=== PATIENT | female | born 1985 | race Hispanic/Latino ===

== ENCOUNTER 2021-09-09 12:33 | Outpatient (CLI) | payer BC, SELFPAY ==
--- NOTE | ~2021-09-09 | MMUS_ITS ---
EXAMINATION: MM diagnostic david BI w noel, US breast BI complete HISTORY: Bilateral nipple discharge. Lump left breast. TECHNIQUE: Additional 3-D tomosynthesis images of the breasts were performed and synthetic 2-D images were generated. CAD analysis was submitted and interpreted. High resolution bilateral complete breas t ultrasound was performed. COMPARISON: No prior studies for comparison. BREAST PARENCHYMAL COMPOSITION: The breasts are heterogenously dense, which may obscure small masses FINDINGS: MAMMOGRAPHIC FINDINGS: . There are no suspicious masses, calcifications or architectural distortion in either breast to sugg est malignancy. ULTRASOUND: Complete bilateral US of all 4 quadrants of the breasts and retroareolar region was reviewed. Right breast: At 7:00, 4 cm from the nipple there is an oval hypoechoic mass without posterior featur es or internal vascularity measuring 11 x 7 x 5 mm. There is parallel orientation with no significant posterior features. No other masses in the right breast are identified. Left breast: Normal heterogeneous echotexture without focal solid or cystic mass. IMPRESSION: 1. Probable benign right breast mass at 7:00, 4 cm from the nipple measuring 11 mm. 2. Recommend 6 month follow-up limited right breast ultrasound BI-RADS category 4, suspicious findings. Reviewed, dictated and finalized at location A. IMPRESSION: 1. Probable benign right breast mass at 7:00, 4 cm from the nipple measuring 11 mm. 2. Recommend 6 month follow-up limited right breast ultrasound BI-RADS category 4, suspicious findings.
== END 2021-09-09 12:34 | disposition home or self-care (01) ==
PROVIDERS: PCP Physician Assistant; Visit Provider Nurse Practitioner
DX: R92.8 Other abnormal and inconclusive findings on diagnostic imaging of breast (principal); N63.13 Unspecified lump in the right breast, lower outer quadrant
CPT/HCPCS: 76641; 77062; 77066; G0279

== ENCOUNTER 2022-11-11 06:27 | Outpatient (CLI) | payer BC, MEDICAID, SELFPAY ==
[2022-11-11] VITALS (22 sets, daily range): BP systolic 94–109; BP diastolic 47–59; PULSE 79–103; TEMP 36.6; O2SAT 97–100
--- NOTE | 2022-11-11 06:53 | PM.IMHP ---
H&P: HPI History of Present Illness Date/Time: 11/11/22 06:53 Chief Complaint: Asya is a 37yo at 36.1 who presents for external cephalic version. Baby francisco breech, normal fluid, posterior placenta. She has had 3 term svds. This complicated by A1GDM and AMA. Review of Systems Review of Systems: All systems reviewed & are unremarkable except as noted in HPI and below PMFSH Family History Family History (System 03/01/19 @ 10:12 by Lisa Santizo) Mother High cholesterol Father Diabetes mellitus Social History Social History (System 03/01/19 @ 10:12 by Lisa Santizo) Smoking status: Never smoker Substance use: never Spiritual care concerns: No Meds Home Medications and Allergies Home Medications Medication Instructions Recorded Confirmed Type vit no.133-ferrous 1 tablet PO DAILY 02/06/19 02/06/19 History fumarate 28 mg-folic acid 800 mcg tablet () Allergies Allergy/AdvReac Type Severity Reaction Status Date / Time No Known Allergies Allergy Verified 03/01/19 10:12 Exam Const: General: no acute distress Resp: Effort & Inspection: normal respiratory effort Auscultation: clear to auscultation bilaterally Cardio: Rate: regular rate Rhythm: regular rhythm GI: GI Palp: Yes Soft to palpation Extrem: General: normal to inspection Assessment and Plan Assessment and plan (1) Breech presentation: Code(s): O32.1XX0 - Maternal care for breech presentation, not applicable or unspecified Status: Acute Plan consented for ECV, normal fluid, francisco breech, posterior placenta. terbutaline FHT category 1 will proceed. pt aware of risks and alternate of CS
[2022-11-11] MEDS: TERBUTALINE SULFATE 1 MG/ML VIAL 0.25 MG SUB-Q (07:03)
--- NOTE | 2022-11-11 07:27 | W.PM.PROC2 ---
Procedure Note - Detailed Date of Procedure 11/11/22 Pre-op Diagnosis Francisco Breech fetus Post-op Diagnosis Same Procedure Performed External Cephalic Version, failed Surgeon Phyllis Julien MD Assistant [employer] none Anesthesia None Indications francisco breech fetus Findings posterior placenta, normal fluid, fetus in francisco breech position with breech very low in pelvis Description of Procedure heart tones were category 1 prior to procedure. She received terbutaline preprocedure. Ultrasound was done verifying posterior placenta, adequate fluid, and francisco breech presentation with head in the RUQ. Using ultrasound gel as lubricant, several attempts were made at both a forward roll and backward roll, but the breech was so low in the pelvis it was unable to be elevated out of the pelvis. Heart tones were intermittently visualized with the ultrasound and were normal. The procedure was terminated. Asya tolerated the procedure well. The baby was placed back on the monitor for an additional hour. Estimated Blood Loss 0 Drains No Packing No Pathology None sent Complications No immediate complications Condition Stable Disposition Other (home after monitoring complete.)
[2022-11-11 07:58] LABS: Glucose Point of Care 79 mg/dl (65-105)
--- NOTE | 2022-11-11 09:07 | PC.NURSE ---
0700--Dr. Julien at bedside to perform external version. Risks and benefits explained. No questions at this time.
--- NOTE | 2022-11-11 09:13 | PC.NURSE ---
0755--Pt c/o feeling dizzy. Blood sugar checked-79. Peanut butter and crackers given.
--- NOTE | 2022-11-11 09:15 | PC.NURSE ---
0815--Pt states she is feeling better after snack. VSS stable.
--- NOTE | 2022-11-11 09:27 | PC.NURSE ---
0715--External version unsuccessful.
== END 2022-11-11 08:40 | disposition home or self-care (01) ==
LOC: ANHOBOP 06:38 → ANHLDR 06:41
PROVIDERS: PCP Physician Assistant; Visit Provider Obstetrics & Gynecology
DX: O32.1XX0 Maternal care for breech presentation, not applicable or unspecified (principal); Z3A.00 Weeks of gestation of pregnancy not specified
CPT/HCPCS: 59025; 82948; 99199; J3105

== ENCOUNTER 2022-12-05 05:28 | Inpatient (IN) | payer BC, MEDICAID, SELFPAY ==
[2022-12-05] VITALS (65 sets, daily range): BP systolic 84–108; BP diastolic 43–82; PULSE 54–77; RESP 15–18; TEMP 36.1–37.2; O2SAT 94–100; BMI 26.6
[2022-12-05] MEDS: LACTATED RINGERS 1,000 ML 125 ML IV CONT ×2 (06:15→07:13)
--- NOTE | 2022-12-05 06:16 | LDADM ---
This patient, Asya Mcclelland, was admitted to Labor/Delivery/Recovery 120 on 12/05/22 at 05:28. Plans for labor, pain management and were discussed with patient. Patient/family oriented to hospital policies and general routines including ID bracelet, bed and alarms, visiting hours, pain management, procedures, bathroom and other care routines, personal items, smoking policy, room service/diet and guest tray routines, infant security routines, and visiting hours. Patient/Family are encouraged to report perceived risks to care and to ask questions if they do not understand what they are told or what they should do. See OBIX for further documentation.
[2022-12-05 06:20] LABS: Basophils Percent Auto 0.4 % (0.2-1.2); Eosinophils Absolute Auto 0.2 K/mm3 (0-0.3); Eosinophils Percent Auto 2.6 % (0-4.4); Hematocrit 37.9 % (37.0-47.0); Hemoglobin 12.4 g/dL (12.0-15.0); Immature Granulocyte Absolute 0.05 K/mm3 (0.00-0.031); Immature Granulocyte Percent A 0.7 % (0-0.5); Lymphocytes Absolute Auto 1.68 K/mm3 (0.9-3.2); Lymphocytes Percent Auto 23.8 % (18.3-44.2); Mean Corpuscular HGB Conc 32.7 g/dl (32-36); Mean Corpuscular Hemoglobin 32.1 pg (26-34); Mean Corpuscular Volume 98.2 fl (80-100); Mean Platelet Volume 11.2 fl (7.4-10.4); Monocytes Absolute Auto 0.5 K/mm3 (0.1-0.6); Monocytes Percent Auto 7.4 % (2.6-8.5); Neutrophils Absolute Auto 4.6 K/mm3 (1.3-6.7); Neutrophils Percent Auto 65.1 % (45.5-73.1); Platelet Count Result 156 k/mm3 (150-375); Red Blood Count 3.86 M/mm3 (4.2-5.4); Red Cell Distribution Width 14.6 % (11.5-14.5); White Blood Count 7.1 K/mm3 (4.5-10.0)
[2022-12-05 06:23] LABS: Glucose Point of Care 72 mg/dl (65-105)
--- NOTE | 2022-12-05 07:11 | PM.IMHP ---
H&P: HPI History of Present Illness Date/Time: 12/05/22 07:11 Chief Complaint: CS breech Narrative: Asay is a 37yo at 39.4 for CS for breech. 3 prior at term. complicated by GDMA1 and AMA. Failed ECV. Review of Systems Review of Systems: All systems reviewed & are unremarkable except as noted in HPI and below PMFSH Family History Family History (System 03/01/19 @ 10:12 by Lisa Santizo) Mother High cholesterol Father Diabetes mellitus Social History Social History (System 03/01/19 @ 10:12 by Lisa Santizo) Smoking status: Never smoker Second hand tobacco smoke exposure: No Substance use: never Lack of Transportation: No Lack of Food: Never True Current Housing: I Have Housing Concerned About Future Housing: No Difficulty Paying Gas/Electric Bills: No Difficulty Paying for Meds: No Currently Unemployed: No Education: High School Diploma/GED Difficulty w/ Childcare or Family Care: No Spiritual care concerns: No Meds Home Medications and Allergies Home Medications Medication Instructions Recorded Confirmed Type vit no.133-ferrous 1 tablet PO DAILY 02/06/19 02/06/19 History fumarate 28 mg-folic acid 800 mcg tablet () Allergies Allergy/AdvReac Type Severity Reaction Status Date / Time No Known Allergies Allergy Verified 03/01/19 10:12 Vital Signs Vital Signs - 24 hr 12/05/22 05:51 12/05/22 06:16 12/05/22 06:31 Pulse Rate 74 73 71 Blood Pressure 108/50 L 104/82 104/68 12/05/22 06:46 12/05/22 07:01 Pulse Rate 72 66 Blood Pressure 84/70 L 106/63 Exam Const: General: no acute distress Resp: Effort & Inspection: normal respiratory effort Auscultation: clear to auscultation bilaterally Cardio: Rate: regular rate Rhythm: regular rhythm GI: GI Palp: Yes Soft to palpation Extrem: General: normal to inspection H&P: Results Labs Labs: Short CBC 12/05/22 Range/Units 06:09 WBC 7.1 (4.5-10.0) K/mm3 Hgb 12.4 (12.0-15.0) g/dL Hct 37.9 (37.0-47.0) % Plt Count 156 (150-375) k/mm3 Assessment and Plan Assessment and plan (1) Breech presentation: Code(s): O32.1XX0 - Maternal care for breech presentation, not applicable or unspecified Status: Acute (2) GDM (gestational diabetes mellitus), class A1: Code(s): O24.410 - Gestational diabetes mellitus in , diet controlled Status: Acute Plan FHT category 1 CS for breech, consented, discussed RBA, will proceed ancef
--- NOTE | 2022-12-05 07:14 | WPDHPUPDATE1 ---
History and Physical Update Update Date/Time: 12/05/22 07:14 History and Physical has been reviewed, including an updated exam of the patient. There are NO changes in the patient's condition. Risks, benefits, and alternatives have been discussed and questions answered. Patient agrees to proceed with procedure.
--- NOTE | 2022-12-05 07:18 | PC.NURSE ---
0659--Dr. nicholson at , u/s confirms still in breech position.
[2022-12-05] MEDS: ceFAZolin 2 GM/D5W 50 ML 2 GM/50 ML BAG IVPB (07:24)
--- NOTE | 2022-12-05 07:40 | WPDANESEPP ---
Anes - Eval Pre Procedure Procedure: Operation Date: 12/05/22 07:30 Proposed Procedures p Section - Phyllis Julien MD Date/Time: 12/05/22 07:40 Pre Op Diagnosis: C/S Patient Data Age: 37 Gender: F Height: 1.63 m Weight: 70.45 kg Last Vital Signs Pulse 66 12/05/22 07:01 BP 106/63 12/05/22 07:01 Allergies Allergy/AdvReac Type Severity Reaction Status Date / Time No Known Allergies Allergy Verified 03/01/19 10:12 Home Medications Medication Instructions Recorded Confirmed Type vit no.133-ferrous 1 tablet PO DAILY 02/06/19 02/06/19 History fumarate 28 mg-folic acid 800 mcg tablet () Laboratory Tests 12/05/22 12/05/22 06:09 06:19 WBC 7.1 K/mm3 (4.5-10.0) RBC 3.86 L M/mm3 (4.2-5.4) Hgb 12.4 g/dL (12.0-15.0) Hct 37.9 % (37.0-47.0) MCV 98.2 fl (80-100) MCH 32.1 pg (26-34) MCHC 32.7 g/dl (32-36) RDW 14.6 H % (11.5-14.5) Plt Count 156 k/mm3 (150-375) MPV 11.2 H fl (7.4-10.4) Immature Gran % (Auto) 0.7 H % (0-0.5) Neut % (Auto) 65.1 % (45.5-73.1) Lymph % (Auto) 23.8 % (18.3-44.2) [place] % (Auto) 7.4 % (2.6-8.5) Eos % (Auto) 2.6 % (0-4.4) Baso % (Auto) 0.4 % (0.2-1.2) Lymph # (Auto) 1.68 K/mm3 (0.9-3.2) [place] # (Auto) 0.5 K/mm3 (0.1-0.6) Eos # (Auto) 0.2 K/mm3 (0-0.3) Baso # (Auto) 0.0 K/mm3 (0.0-0.1) Abs Immat Gran (auto) 0.05 H K/mm3 (0.00-0.031) Absolute Neuts (auto) 4.6 K/mm3 (1.3-6.7) Absolute Nucleated RBC 0.0 K/mm3 (0.0-0.012) Nucleated RBC % 0.0 % (0.0-0.2) POC Capillary Glucose 72 mg/dl (65-105) RPR Pending Blood Type B Positive Antibody Screen Negative Patient hx anesthesia problems: none Family hx anesthesia problems: none Results Review: All pre-operative results and documents have been reviewed as part of the pre-operative evaluation. [facility] Family History Family History (System 03/01/19 @ 10:12 by Lisa Santizo) Mother High cholesterol Father Diabetes mellitus Social History Social History (System 03/01/19 @ 10:12 by Lisa Santizo) Smoking status: Never smoker Second hand tobacco smoke exposure: No Substance use: never Lack of Transportation: No Lack of Food: Never True Current Housing: I Have Housing Concerned About Future Housing: No Difficulty Paying Gas/Electric Bills: No Difficulty Paying for Meds: No Currently Unemployed: No Education: High School Diploma/GED Difficulty w/ Childcare or Family Care: No Spiritual care concerns: No Exam Day of Procedure 12/05/22 07:40 Patient weight: overweight Heart: regular rate and rhythm Lungs: clear to auscultation Airway: Mallampati scale class 1 Neurological: alert and oriented
[2022-12-05] MEDS: KETOROLAC 15 MG/ML VIAL (*BKC) IV PUSH (07:54)
--- NOTE | 2022-12-05 08:25 | PM.OBPRVD ---
OB - Delivery Note Procedure Delivery date: 12/05/22 Procedure: Procedures Operation Date: 12/05/22 07:30 <No data on this case meets the specified criteria> primary section Events: Breech Presentation and Gestational Diabetes Route of delivery: Specimen: Yes (placenta) Quantitative Blood Loss (ml): 485 Anesthesia type: Spinal Disposition: Floor Complications: none Narrative: Preop Dx: IUP 39.4, breech Postop Dx: same The patient was taken to the OR and received spinal anesthesia. She was placed in dorsal supine position with left lateral tilt. SCDs and turner were placed. She was prepped and draped in the normal sterile fashion. A Pfannensteil skin incision was made and carried through to the underlying layer of fascia. The fascia was incised in the midline and then extended laterally using Sauceda scissors. The muscles were in the midline and the peritoneum was entered bluntly. The peritoneal incision was extended inferiorly and superiorly with care to avoid the bladder. The bladder blade was then inserted, the vesicouterine peritoneum was grasped, incised with Metzenbaum scissors, and a bladder flap created. The bladder blade was reinserted. A low transverse uterine incision was made with a scalpel and extended bluntly. AROM was performed and fluid was noted to be meconium stained. The baby was delivered easily from breech presentation. The baby's oropharynx was suctioned. After 30 seconds, the cord was clamped and cut and the was handed off. Cord blood was obtained and the placenta was then removed manually. The uterus was exteriorized. A moist lap sponge was used to curette the endometrium. The uterine incision was then closed with two layers of 0-Vicryl in a running, locking fashion. Good hemostasis was noted. The posterior cul de sac was irrigated with normal saline and cleared of all clot and debris. The uterus was returned to the abdomen. Both lateral gutters were then irrigated. The rectus muscles were inspected and found to be hemostatic. The fascia was reapproximated using 0-Vicryl in running fashion. The subcutaneous tissue was irrigated with normal saline and made hemostatic with Bovie electrocautery. The subcutaneous tissue was reapproximated with a layer of running 2-0 plain gut. The skin was then closed with 4-0 Vicryl in a subcuticular fashion. Steri strips and a bandage were applied. The uterus was evacuated. The patient tolerated the procedure very well. All counts were correct. She was taken to the recovery room in good condition. Baby Date of : 12/05/22 Time of : 07:53 Weeks of gestation at delivery: 39 gender: Female Weight (pounds): 7 Weight (ounces): 10 presentation: francisco breech Placenta delivery description: Manual Removal Cord Vessel Description: 3 Vessels and Clamped/Cut score one minute: 9 score five minutes: 9
[2022-12-05] MEDS: OXYTOCIN 30 UNITS/NS 500 ML 30 UNITS/500 ML BAG 125 UNITS IV CONT (08:52)
--- NOTE | 2022-12-05 10:35 | OBPPTRN ---
Patient transferred to post room #282 via stretcher. Support person present. Oriented to unit, room, information board, rooming in, admission packet and security measures. Patient verbalizes understanding.
[2022-12-05] MEDS: KCL 20 MEQ/D5/0.45% SOD CHL 1,000 ML 125 ML IV CONT (12:45)
[2022-12-05] MEDS: MULTIVIT/MIN/PREN/FOL AC/IRON TABLET 1 TAB PO (12:46)
[2022-12-05] MEDS: DOCUSATE SODIUM 100 MG CAPSULE PO (12:46)
[2022-12-05] MEDS: SIMETHICONE 80 MG TAB.CHEW PO (12:46)
[2022-12-05 12:48] LABS: Rapid Plasma Reagin Non-Reactive (NonReactive)
[2022-12-06 00:40] VITALS: BP 100/53; PULSE 84; RESP 16; TEMP 36.8
[2022-12-06] MEDS: IBUPROFEN 600 MG TABLET PO ×3 (04:13→19:11)
[2022-12-06] MEDS: HYDROcodone/acetaminophen (*CRX) 5-325 MG TABLET 1 TAB PO ×5 (04:14→19:10)
[2022-12-06 04:30] VITALS: BP 100/50; PULSE 82; RESP 18; TEMP 36.8
[2022-12-06 04:42] LABS: Basophils Percent Auto 0.2 % (0.2-1.2); Eosinophils Absolute Auto 0.1 K/mm3 (0-0.3); Eosinophils Percent Auto 0.8 % (0-4.4); Hematocrit 33.9 % (37.0-47.0); Hemoglobin 11.2 g/dL (12.0-15.0); Immature Granulocyte Percent A 0.8 % (0-0.5); Lymphocytes Absolute Auto 1.26 K/mm3 (0.9-3.2); Lymphocytes Percent Auto 9.5 % (18.3-44.2); Mean Corpuscular Hemoglobin 32.6 pg (26-34); Mean Corpuscular Volume 98.5 fl (80-100); Mean Platelet Volume 11.5 fl (7.4-10.4); Monocytes Absolute Auto 0.8 K/mm3 (0.1-0.6); Monocytes Percent Auto 6.1 % (2.6-8.5); Neutrophils Percent Auto 82.6 % (45.5-73.1); Platelet Count Result 145 k/mm3 (150-375); Red Blood Count 3.44 M/mm3 (4.2-5.4); Red Cell Distribution Width 14.6 % (11.5-14.5); White Blood Count 13.3 K/mm3 (4.5-10.0)
--- NOTE | 2022-12-06 07:30 | PC.NURSE ---
PT introductions made and plan of care discussed per , pain management, breast feeding, daily care activities, and c section. PT sole recipient of such instructions and no barriers to learning identified. PT speaks fluent Kiswahili and Cymraes. PT received such instructions per one to one discussion, mom baby care guide and demonstrations this shift. Pt verbalized understanding of such care.
--- NOTE | 2022-12-06 08:06 | PM.OBPNVD ---
OB - PN: Subj Subjective Date/time seen: 12/06/22 08:06 Patient comments: no complaints and incisional pain [place] baby status: doing well [place] feeding status: breast and bottle feeding Narrative: POD 1 from primary CS. Doing well. Normal lochia. Eating, ambulating, turner out. OB - PN: Obj Data Labs 12/06/22 04:17 Labs: Laboratory Results - last 24 hr 12/05/22 12/06/22 06:09 04:17 WBC 13.3 H RBC 3.44 L Hgb 11.2 L Hct 33.9 L MCV 98.5 MCH 32.6 MCHC 33.0 RDW 14.6 H Plt Count 145 L MPV 11.5 H Immature Gran % (Auto) 0.8 H Neut % (Auto) 82.6 H Lymph % (Auto) 9.5 L [place] % (Auto) 6.1 Eos % (Auto) 0.8 Baso % (Auto) 0.2 Lymph # (Auto) 1.26 [place] # (Auto) 0.8 H Eos # (Auto) 0.1 Baso # (Auto) 0.0 Abs Immat Gran (auto) 0.10 H Absolute Neuts (auto) 11.0 H Absolute Nucleated RBC 0.0 Nucleated RBC % 0.0 RPR Non-reactive OB - PN A/P Plan day: 1 Plan: routine care Comments: try ice to incision Time Spent With Patient Time: Total time spent is greater than 50% in coordination of care (as documented) at patient's floor/unit and/or counseling patient: Exam Narrative: NAD abdomen soft, appropriately tender, incision bandaged Extremities nontender with 1+ edema
--- NOTE | 2022-12-06 08:34 | WPDANLDPN2 ---
Anes-Prog Note L&D Date/Time: 12/06/22 08:34 Comfortable throughout: section Neuraxial method: spinal Epidural/Spinal procedure site: clean & non-tender Neuro status: Neuro function grossly intact. Cardiovascular status: normal Respiratory status: normal Airway patency: baseline Mental status: baseline Post-Op hydration status: normal Vital Signs: Last Vital Signs Temp 36.8 C 12/06/22 04:30 Pulse 82 12/06/22 04:30 Resp 18 12/06/22 04:30 BP 100/50 L 12/06/22 04:30 Pulse Ox 97 12/05/22 15:00 O2 Del Method Room Air 12/05/22 15:00 Pain score (VAS): 2/10 I/O: Intake & Output 12/05/22 12/06/22 12/06/22 23:59 07:59 15:59 Intake Total 1900 Output Total 2650 1900 Balance -750 -1900 Post-procedural complaints: none Patient feedback: Patient satisfied with anesthetic care.
--- NOTE | 2022-12-06 08:35 | WPDANLDNPN2 ---
Anes-Prog Note L&D-Neuraxial Date/Time: 12/06/22 08:35 Neuraxial medications: intrathecal PF morphine Opiod-related complaints: none Patient feedback: Patient satisfied with post-operative pain management.
[2022-12-06 08:45] VITALS: BP 99/57; PULSE 83; RESP 16; TEMP 36.8; O2SAT 98
[2022-12-06] MEDS: SIMETHICONE 80 MG TAB.CHEW PO ×3 (09:08→19:08)
[2022-12-06] MEDS: DOCUSATE SODIUM 100 MG CAPSULE PO ×2 (09:08→19:10)
[2022-12-06] MEDS: MULTIVIT/MIN/PREN/FOL AC/IRON TABLET 1 TAB PO (09:08)
[2022-12-06] MEDS: LANOLIN (LANSINOH) 7.5 GM CREAM 1 APPLIC TOPICAL (09:09)
[2022-12-06 09:15] VITALS: PULSE 83; RESP 16; O2SAT 98
--- NOTE | 2022-12-06 13:26 | PC.NURSE ---
[id number] Introductions were made, then consulted with patient to assess needs related to . Mother led the conversation with her?plans to feed?her both breast and bottle, the?experience so far and is demonstrating her on the left breast using cradle positioning and denies pain. Discussed the risks of bottle feeding and how to protect her milk supply. Mother states she has had this feeding plan with her other children and she had a good milk supply. Resources provided for inpatient and outpatient services with the feeding sheet, mom/baby guide and name written on the white board. Mother voiced understanding of information and will call if there is a request for assistance. Reported to the primary RN.
[2022-12-06 21:40] VITALS: BP 103/57; PULSE 75; RESP 18; TEMP 36.7
[2022-12-07] MEDS: IBUPROFEN 600 MG TABLET PO ×2 (01:10→09:43)
[2022-12-07] MEDS: HYDROcodone/acetaminophen (*CRX) 5-325 MG TABLET 1 TAB PO ×2 (01:11→09:43)
--- NOTE | 2022-12-07 07:12 | PM.OBPNVD ---
OB - PN: Subj Subjective Date/time seen: 12/07/22 07:12 Patient comments: no complaints and pain well controlled baby status: doing well and nursing well [place] feeding status: exclusively breast feeding Narrative: would like DC home today OB - PN: Obj Data Labs 12/06/22 04:17 OB - PN A/P Plan day: 2 Plan: routine care and discharge home Comments: DC instructions given Time Spent With Patient Time: Total time spent is greater than 50% in coordination of care (as documented) at patient's floor/unit and/or counseling patient: Exam Narrative: NAD abdomen soft, appropriately tender, incision CDI Extremities nontender with 1+ edema
--- NOTE | 2022-12-07 07:16 | PM.OBDSVD ---
DS: Admitting Diagnosis Discharge Date 12/07/22 Admitting Diagnosis [id number], breech DS: Discharge Diagnosis Discharge Diagnosis (1) delivery delivered: Code(s): O82 - Encounter for delivery without indication Status: Acute OB - DS: Summary Hospital Course Hospital Course: Asya was admitted for primary section for breech. Her delivery and course were uncomplicated and she was discharged home on POD 2. OB Procedures : Ultrasound OB Procedures Intrapartum: OB Procedures: : None Peripartum Data Delivery Method: Section Procedures: Procedures Operation Date: 12/05/22 07:30 Actual Procedure Side Surgeon p Section Phyllis Julien MD complications: none Status at Discharge Functional status at discharge: independent ambulation Time Spent with Patient Time attestation: Total time spent providing and/or coordinating discharge services: Exam Narrative: NAD abdomen soft, appropriately tender, incision CDI Discharge Plan Discharge Attending physician on discharge: Phyllis Julien Discharging Clinician: Phyllis Julien Anticipated Discharge Date/Time: 12/07/22 07:13 Patient Disposition: Home, Self-Care Activity: may shower, may drive after 2 weeks and pelvic rest Diet: regular Patient Instructions: Antibiotic Form Stand Alone Forms: General Discharge Information Follow-up/Referrals: Phyllis Julien MD [Physician] - 1 Week Discharge Medications: New hydrocodone-acetaminophen 5-325 mg Tablet 1 tablet PO Q4-5H PRN (Reason: Moderate Pain (4-6)) Qty: 30 0RF docusate sodium 100 mg Capsule 100 mg PO BID PRN (Reason: constipation) Qty: 60 0RF ibuprofen 600 mg Tablet 600 mg PO Q6H PRN (Reason: Cramping) Qty: 60 0RF Continued ferrous sulfate 325 mg (65 mg iron) Capsule, Extended Release 325 mg PO DAILY 28-800 mg-mcg Tablet 1 tablet PO DAILY Date of admission: 12/05/22 05:28 Primary Care Provider: Lima,Maxine Berg Admitting Provider: Phyllis Julien Attending physician on admission: Phyllis Julien Condition: Stable
[2022-12-07 07:36] VITALS: BP 105/60; PULSE 80; RESP 14; TEMP 36.7; O2SAT 96
[2022-12-07 08:00] VITALS: PULSE 80; RESP 14; O2SAT 96
--- NOTE | 2022-12-07 09:32 | PC.NURSE ---
On 12/07/22, the student, Samantha Lopez, provided care and completed [facility] documentation on this patient. I have reviewed the student's documentation and agree with the findings.
[2022-12-07] MEDS: MULTIVIT/MIN/PREN/FOL AC/IRON TABLET 1 TAB PO (09:43)
[2022-12-07] MEDS: DOCUSATE SODIUM 100 MG CAPSULE PO (09:43)
--- NOTE | 2022-12-07 10:47 | PC.NURSE ---
Patient was given the opportunity to view the discharge video Mother & Baby Care, The First Two Weeks and to ask questions. Patient declined viewing the video and has been given the mother/baby guide for home reference.
[2022-12-08 09:23] VITALS: BP 114/49; PULSE 73; RESP 18; TEMP 37.3; O2SAT 97
== END 2022-12-07 12:05 | disposition home or self-care (01) | DRG 788 ==
LOC: ANHLDR 05:33 → ANHOB2 10:40
PROVIDERS: Admitting Provider Obstetrics & Gynecology; PCP Physician Assistant; Visit Provider Obstetrics & Gynecology
PROC: 10D00Z1 Extraction of Products of Conception, Low, Open Approach (ICD-10-PCS; CPT 59514; principal; 2022-12-05 07:30)
DX: O32.1XX0 Maternal care for breech presentation, not applicable or unspecified (principal); O24.420 Gestational diabetes mellitus in childbirth, diet controlled; Z37.0 Single live birth; Z3A.39 39 weeks gestation of pregnancy; O77.0 Labor and delivery complicated by meconium in amniotic fluid; Z23 Encounter for immunization
CPT/HCPCS: 36415; 82948; 85025; 86592; 86850; 86900; 86901; 90471; 90686; A9270; G0008; J0690; J1885; J2274; J2371; J2405; J2590; J3480; J7120